=== PATIENT | male | born 1985 | race Caucasian/White ===

== ENCOUNTER 2017-06-18 13:17 | Emergency (ER) | payer BC ==
[2017-06-18] MEDS ORDERED: Sodium Chloride 0.9% 1,000 ML IV ONE (13:30)
--- NOTE | 2017-06-18 13:42 | EDM.PDOC ---
ED HPI GENERAL MEDICAL PROBLEM - General Chief Complaint: Abdominal Pain Stated Complaint: ABDOMINAL PAIN/BLOOD IN STOOL Time Seen by Provider: 06/18/17 13:20 Source of Information: Reports: Patient History Limitations: Reports: No Limitations - History of Present Illness INITIAL COMMENTS - FREE TEXT/NARRATIVE: HISTORY AND PHYSICAL: History of present illness: Patient is a 32-year-old male who presents to the emergency room today with complaints of blood in his stools. States approximately 7 or 8 years ago he did have a history of internal and external hemorrhoids which did cause him quite a bit of problems, and had bleeding at that time. States he saw a primary care provider at that time and gave him suppositories which seem to help. Since that time he has intermittent bleeding which he has attributed to his hemorrhoids. Over the past month he has had some generalized abdominal pain and states that his stools are dark red and mixed with catie blood which did concern him. When he is having a bowel movement he states he wipes and does note blood on the toilet paper. Otherwise stool consistency is "normal". Reports he is otherwise healthy and does not take any medications. Uses alcohol routinely and does smoke. Has never had a colonoscopy. Denies n/v Denies any chest pain, shortness of breath, headache, diaphoresis, syncope or near syncope. Does not complain of lightheadedness or near syncope with positional changes. Review of systems: As per history of present illness and below otherwise all systems reviewed and negative. Past medical history: As per history of present illness and as reviewed below otherwise noncontributory. Surgical history: As per history of present illness and as reviewed below otherwise noncontributory. Social history: No reported history of drug or alcohol abuse. Family history: As per history of present illness and as reviewed below otherwise noncontributory. Physical exam: Gen.: Well-developed and well-nourished 32-year-old male. Able to speak in full sentences without shortness of breath. HEENT: Atraumatic, normocephalic, pupils reactive, negative for conjunctival pallor or scleral icterus, mucous membranes moist, throat clear, neck supple, nontender, trachea midline. Lungs: Clear to auscultation, breath sounds equal bilaterally, chest nontender. Heart: S1S2, regular, negative for clicks, rubs, or JVD. Abdomen: Soft, nondistended, nontender. Negative for masses or hepatosplenomegaly. Negative for costovertebral tenderness. Pelvis: Stable nontender. Genitourinary: Deferred. Rectal: This was conducted with a structural engineering project manager. Multiple small external hemorrhoids were noted, grade 1. Good rectal tone. Hemoccult was positive on hemocult card. Extremities: Atraumatic, negative for cords or calf pain. Neurovascular unremarkable. Neuro: Awake, alert, oriented. Cranial nerves II through XII unremarkable. Cerebellum unremarkable. Motor and sensory unremarkable throughout. Exam nonfocal. Diagnostics were reviewed with patient. Did prescribe him some hydrocortisone rectal suppositories as he has had good relief with these in the past. We did discuss the need for follow-up with the general surgeon if he continues to have problems with hemorrhoids and the abdominal discomfort. He voices understanding and is agreeable to plan of care. He denies any further questions at this time. Diagnostics: CBC, CMP, abdominal and pelvis CT scan Therapeutics: NS Impression: Hemorrhoids Plan: 1. Please follow-up with the general surgeon if he continued to have problems with hemorrhoids. Hydrocortisone rectal suppositories have been prescribed may use these twice daily for the next 2 weeks. 2. Please use Prilosec [id number] once daily 2-4 weeks for your abdominal discomfort. 3. Please adhere to lifestyle and dietary modifications to avoid straining while having a bowel movement. You may want to consider adding fiber to your diet 25g-30 g daily. 4. Follow-up with your primary care provider in the next 1-2 days. Return to the ED as needed and as discussed Definitive disposition and diagnosis as appropriate pending reevaluation and review of above. Duration: Chronic - Related Data Allergies Allergy/AdvReac Type Severity Reaction Status Date / Time acetaminophen [From Tylenol] Allergy throat Verified 06/18/17 13:26 swelling and itchiness codeine Allergy throat Verified 06/18/17 13:26 swelling and itchiness Home Meds: Home Meds . [No Known Home Meds] 06/18/17 [History] ED ROS GENERAL - Review of Systems Review Of Systems: ROS reveals no pertinent complaints other than HPI. ED EXAM, GI/ABD - Physical Exam Exam: See Below (See dictation) Course - Vital Signs Last Recorded V/S: Last Vital Signs Temp 36.4 C 06/18/17 13:27 Pulse 111 H 06/18/17 13:27 Resp 16 06/18/17 13:27 BP 149/85 H 06/18/17 13:27 Pulse Ox 98 06/18/17 13:27 - Orders/Labs/Meds Labs: Laboratory Tests 06/18/17 06/18/17 Range/Units 13:45 13:45 WBC 13.41 H (4.0-11.0) K/uL RBC 5.04 (4.50-5.90) M/uL Hgb 15.2 (13.0-17.0) g/dL Hct 44.1 (38.0-50.0) % MCV 87.5 (80.0-98.0) fL MCH 30.2 (27.0-32.0) pg MCHC 34.5 (31.0-37.0) g/dL RDW Std Deviation 42.9 (28.0-62.0) fl RDW Coeff of Andrés 14 (11.0-15.0) % Plt Count 338 (150-400) K/uL MPV 9.20 (7.40-12.00) fL Neut % (Auto) 78.9 (48.0-80.0) % Lymph % (Auto) 14.3 L (16.0-40.0) % Stephens % (Auto) 6.0 (0.0-15.0) % Eos % (Auto) 0.5 (0.0-7.0) % Baso % (Auto) 0.3 (0.0-1.5) % Neut # (Auto) 10.6 H (1.4-5.7) K/uL Lymph # (Auto) 1.9 (0.6-2.4) K/uL Stephens # (Auto) 0.8 (0.0-0.8) K/uL Eos # (Auto) 0.1 (0.0-0.7) K/uL Baso # (Auto) 0.0 (0.0-0.1) K/uL Nucleated RBC % 0.0 /100WBC Nucleated RBCs # 0 K/uL Sodium 140 (136-146) mmol/L Potassium 3.7 (3.5-5.1) mmol/L Chloride 105 (98-110) mmol/L Carbon Dioxide 26 (21-31) mmol/L BUN 14 (6.0-23.0) mg/dL Creatinine 1.1 (0.6-1.5) mg/dL Est Cr Clr Drug Dosing TNP Estimated GFR (MDRD) > 60.0 ml/min Glucose 93 (60-110) mg/dL Calcium 9.4 (8.8-10.8) mg/dL Total Bilirubin 0.3 (0.1-1.5) mg/dL AST 21 (5-40) IU/L ALT 28 (8-54) IU/L Alkaline Phosphatase 85 (40-150) Total Protein 7.4 (6.0-8.0) g/dL Albumin 4.5 (3.5-5.0) g/dL Globulin 2.9 (2.0-3.5) g/dL Albumin/Globulin Ratio 1.6 (1.3-2.8) Meds: Medications Discontinued Medications Generic Name Dose Route Start Last Admin Trade Name Freq PRN Reason Stop Dose Admin Sodium Chloride 1,000 mls @ 999 mls/hr 06/18/17 13:30 06/18/17 13:42 Normal Saline IV 06/18/17 14:30 999 mls/hr STAT ONE Administration Iopamidol 100 ml 06/18/17 14:33 06/18/17 14:52 Isovue Multipack-370 (76%) IVPUSH 06/18/17 14:34 100 ml ONETIME STA Administration Departure - Departure Time of Disposition: 15:33 Disposition: Home, Self-Care 01 Clinical Impression: Hemorrhoids Qualifiers: Hemorrhoid type: first degree Qualified Code(s): K64.0 - First degree hemorrhoids Abdominal pain Qualifiers: Abdominal location: generalized Qualified Code(s): R10.84 - Generalized abdominal pain - Discharge Information Referrals: PCP,None [Primary Care Provider] - Forms: ED Department Discharge Additional Instructions: My general discharge The following information is given to patients seen in the emergency department who are being discharged to home. This information is to outline your options for follow-up care. We provide all patients seen in our emergency department with a follow-up referral. The need for follow-up, as well as the timing and circumstances, are variable depending upon the specifics of your emergency department visit. If you don't have a primary care physician on staff, we will provide you with a referral. We always advise you to contact your personal physician following an emergency department visit to inform them of the circumstance of the visit and for follow-up with them and/or the need for any referrals to a consulting specialist. The emergency department will also refer you to a specialist when appropriate. This referral assures that you have the opportunity for follow-up care with a specialist. All of these measure are taken in an effort to provide you with optimal care, which includes your follow-up. Under all circumstances we always encourage you to contact your private physician who remains a resource for coordinating your care. When calling for follow-up care, please make the office aware that this follow-up is from your recent emergency room visit. If for any reason you are refused follow-up, please contact the [facility] Emergency Department at and asked to speak to the emergency department charge nurse. [facility] Specialty Care - General Surgery Professional Building [address] [place] [address], [address] [place] [address] [facility] [address] [place] [id number] 1. Please follow-up with the general surgeon if he continued to have problems with hemorrhoids. Hydrocortisone rectal suppositories have been prescribed may use these twice daily for the next 2 weeks. 2. Please use Prilosec [id number] once daily 2-4 weeks for your abdominal discomfort. 3. Please adhere to lifestyle and dietary modifications to avoid straining while having a bowel movement. You may want to consider adding fiber to your diet 25g-30 g daily. 4. Follow-up with your primary care provider in the next 1-2 days. Return to the ED as needed and as discussed
[2017-06-18 14:17] LABS: CHLORIDE,CL 105 mmol/L (98-110); SODIUM,NA 140 mmol/L (136-146)
[2017-06-18] MEDS ORDERED: Iopamidol 755 MG/ML 500 ML Multipack Bottle IVPUSH STA (14:33)
--- NOTE | 2017-06-18 15:18 | CT ---
CT of the abdomen and pelvis with contrast. HISTORY: Blood in stools TECHNIQUE: Axial CT images were obtained of the abdomen and pelvis following administration of 100 mL of Isovue-370 in the right antecubital fossa without complication. Coronal and sagittal reconstructi ons obtained. FINDINGS: The lung bases are clear, no pleural effusion. Mild dependent atelectasis. The liver, spleen, adrenal glands, and pancreas appear normal. The gallbladder is normal. There is no bulky retroperitoneal lymphadenopathy or abdominal ascites. Kidneys enhance and function symmetrically without evidence of obstructive uropathy. Renal cortical c ysts are noted. The large and small bowel are normal in caliber without evidence of obstruction. There is no focal pe ricolonic inflammation or stranding. The appendix appears normal. Urinary bladder is normal. No bulky pelvic lymphadenopathy or free pelvic fluid. No suspicious osseous abnormalities identified. IMPRESSION: 1. No acute findings demonstrated within the abdomen or pelvis.
== END 2017-06-18 15:36 | disposition home or self-care (01) ==
LOC: MW.ED 13:17
DX: K64.4 Residual hemorrhoidal skin tags (principal); K64.0 First degree hemorrhoids
CPT/HCPCS: 36415; 74177; 80053; 85025; 96360; 99284; J7040; Q9967; 99283